=== PATIENT | male | born 2000 | race American Indian/Alaskan Native ===

== ENCOUNTER 2020-02-23 13:02 | Emergency (ER) | payer SELFPAY ==
[2020-02-23 13:47] VITALS: BP 110/61
--- NOTE | 2020-02-23 13:48 | Emergency Department Report ---
Stated Complaint: LT KNEE PAIN Time Seen by Provider: 02/23/20 13:44 - HPI History of Present Illness: Patient is a 19-year-old male presents emergency room complaints of chronic left knee pain for 2 years. He states that occasionally he feels like the knee wants to give out on him but he is ambulating without difficulty. He states that he has intermittent swelling but denies any swelling currently. He denies any acute fall or injury. He denies any numbness or weakness. No past medical history. No allergies to medications. Vitals are normal On exam: No tenderness palpation of the left lower extremity, full range of motion of the left lower extremity, no obvious joint laxity, no deformity, no skin changes, no redness, no increased warmth, neurovascularly intact Patient is visiting for chronic knee pain for 2 years No abnormality on physical examination as documented in chart He has had no trauma, no clinical signs of acute traumatic fracture or dislocation He has no clinical signs of DVT, significant joint effusion, septic joint Patient be referred to orthopedic doctor Discussed supportive care and symptomatic treatment with patient Discussed return precautions Medical screening examination performed and there is no threat to life or limb at this time MSE screening note: Focused history and physical exam performed. Due to findings the following was ordered: ED Disposition for MSE Clinical Impression: Chronic pain of left knee Disposition: Z-07 MED SCREENING EXAM-LEFT Is pt being admited?: No Does the pt Need Aspirin: No Condition: Stable Instructions: Chronic Knee Pain, Adult, [id number] Additional Instructions: May alternate Tylenol or ibuprofen as needed for discomfort. May use a Jamshid wrap or elastic knee brace [id number] but do not wear too tightly and do not wear at sleeping. May ice for 15 minutes at a time, rest, elevate the leg. Follow-up with orthopedic doctor. Return to emergency room for any new or worsening symptoms. Referrals: MACKENZIE BOUCHER MD [Staff Physician] - 2-3 Days [facility] [Provider Group] - 2-3 Days Time of Disposition: 13:47 Print Language: GEORGIAN
== END 2020-02-23 14:22 | disposition left against medical advice (07) ==
LOC: ED 13:02
DX: M25.562 Pain in left knee (principal); Z53.21 Procedure and treatment not carried out due to patient leaving prior to being seen by health care provider